=== PATIENT | male | born 1950 | race Two or more races ===

== ENCOUNTER 2024-12-06 12:31 | Inpatient (IN) | payer MEDICARE, MEDICAID, SELFPAY ==
[2024-12-06] VITALS (7 sets, daily range): BP systolic 122–173; BP diastolic 77–91; PULSE 58–74; RESP 16–19; TEMP 36.6–36.8; O2SAT 97–99
--- NOTE | 2024-12-06 13:06 | EKG_ITS ---
[facility] Test Date: 2024-12-06 Pat Name: BALDO GLEASON Department: Room: - Gender: Male Technology Recruiter: : 1950 Requested By: Sharan Cazares Order Number: [id number] Reading MD: Sharan Cazares Measurements Intervals [place] Rate: 55 P: 59 WV: 160 QRS: 25 QRSD: 98 T: 53 QT: 428 QTc: 412 Interpretive Statements SINUS BRADYCARDIA No previous ECG available for comparison /store/S0/[id number].pdf
--- NOTE | 2024-12-06 13:06 | XR_ITS ---
Examination: PA lateral chest 2 views TECHNIQUE: Upright PA lateral chest 2 views Date and time: November 28, 2024 1420 hours INDICATIONS: Weakness fatigue beginning 3 days ago FINDINGS: Normal heart size. Lungs are clear. Ectatic thoracic aorta. No pneumonia or pulmonary edema IMPRESSION: No active disease
--- NOTE | 2024-12-06 13:06 | PD.EDRME ---
Rapid Medical Screening Exam E Arrival date/time: 12/06/24 12:31 74-year-old male with no known medical history presents to the emergency room with a chief complaint of chest pain, palpitations, weakness, x 2 days. Patient states has been working out in the sun building a tafoya for the last week. I have greeted and performed a focused initial assessment of this patient. A comprehensive ED assessment and evaluation of the patient, analysis of all test results, and completion of the medical decision making process will be conducted by additional ED providers. Chief Complaint: Weakness Time Seen by Provider: 12/06/24 12:55 Vital signs: Vital Signs Temperature 97.9 F 12/06/24 13:05 Pulse Rate 58 L 12/06/24 13:05 Respiratory Rate 18 12/06/24 13:05 Blood Pressure 122/77 12/06/24 13:05 Pulse Oximetry (%) 98 12/06/24 13:05 Oxygen Delivery Method Room Air 12/06/24 13:05 Vital signs reviewed by provider: Yes
[2024-12-06 13:52] LABS: Basophils % (Auto) 0 % (0-2.5); Eosinophils % (Auto) 0 % (0-10); Hematocrit 38.8 % (41.0-53.0); Hemoglobin 13.2 g/dL (13.5-16.0); Immature Granulocytes % (Auto) 0 % (0-0); Immature Granulocytes Auto 0.02 Thou/mm3 (0.00-0.00); Lymphocytes # (Auto) 1.4 Thou/mm3 (1.0-4.8); Lymphocytes % (Auto) 18 % (10-50); Mean Corpuscular Hemoglobin 30.1 pg (25.0-35.0); Mean Corpuscular Volume 89 fL (80-100); Monocytes # (Auto) 0.4 Thou/mm3 (0.0-0.8); Monocytes % (Auto) 5 % (0-12); Neutrophils # (Auto) 5.9 Thou/mm3 (1.8-7.7); Neutrophils % (Auto) 77 % (37-80); Nucleated Red Blood Cell % 0 /100 WBC (0); Platelet Count 203 Thou/mm3 (140-440); RDW Standard Deviation 44.8 fL (35.1-43.9); Red Blood Count 4.38 Miln/mm3 (4.50-5.90); White Blood Count 7.6 Thou/mm3 (3.8-10.6)
[2024-12-06 14:11] LABS: INR 1.1 (0.9-1.3); Partial Thromboplastin Time 27.3 Seconds (22.0-36.0); Prothrombin Time 11.9 Seconds (9.0-12.2)
[2024-12-06 14:16] LABS: B-Type Natriuretic Peptide 96 pg/mL (0-100)
[2024-12-06 14:25] LABS: Alanine Aminotransferase 31 U/L (10-49); Albumin, Serum 4.5 gm/dL (3.4-4.8); Albumin/Globulin Ratio 2.4 (1.2-2.2); Anion Gap 10 (7-16); Aspartate Amino Transferase 67 U/L (0-34); BUN/Creatinine Ratio 19 Ratio (12-20); Bilirubin,Total 1.1 mg/dL (0.3-1.2); Blood Urea Nitrogen 17 mg/dL (9-23); Calcium 8.8 mg/dL (8.3-10.6); Calcium (Corrected) 8.8 mg/dL (8.5-10.1); Carbon Dioxide 25.8 mMol/L (20.0-31.0); Chloride 105 mMol/L (98-107); Creatine Kinase 1049 U/L (34-171); Creatinine (Component) 0.9 mg/dL (0.6-1.3); Globulin 1.9 gm/dL (2.3-3.5); Glucose 106 mg/dL (74-106); Magnesium 2.1 mg/dL (1.6-2.6); Osmolality,Calculated 282 (275-295); Potassium 4.5 mMol/L (3.4-5.1); Sodium 141 mMol/L (136-145); Total Protein 6.4 gm/dL (5.7-8.2); eGFR > 60 See Note
[2024-12-06 14:36] LABS: Alkaline Phosphatase 85 U/L (46-116)
[2024-12-06 14:53] LABS: Troponin I 5.104 ng/mL (0.0-0.045)
[2024-12-06 15:29] LABS: Collection Type, Urine Clean Catch
--- NOTE | 2024-12-06 15:32 | EDNOTE_ITS ---
ED General RME/HPI General Chief complaint: Weakness Stated complaint: WEAKNESS W/ SHARP CX PAIN POST WORKING IN SUN Time Seen by Provider: 12/06/24 12:55 Arrival date/time: 12/06/24 12:31 RME / HPI RME / HPI narrative: 12/06/24 12:31 74-year-old male with no known medical history presents to the emergency room with a chief complaint of chest pain, palpitations, weakness, x 2 days. Patient states has been working out in the sun building a tafoya for the last week. I have greeted and performed a focused initial assessment of this patient. A comprehensive ED assessment and evaluation of the patient, analysis of all test results, and completion of the medical decision making process will be conducted by additional ED providers. DR. SALAS MAIN ED EVALUATION: 74 year old male with past medical history significant for hypertension takes Losartan presents to the Emergency Department accompanied by his with complaint of chest pain onset 2 days worsening this morning. Pain is described as aching and rated 7/10. Patient states he has been pushing himself and working very hard lately in the heat. He also mentions that he has been going thorough a lot of emotional stress. Associated symptoms include generalized weakness. Denies taking any aspirin. Related Data Allergies Allergy/AdvReac Type Severity Reaction Status Date / Time No Known Allergies Allergy Verified 12/06/24 12:40 Review of Systems Review of Systems Systems Reviewed: All systems reviewed, normal except as documented Narrative Review of Systems: GEN: No fever, no chills, no weight loss EYES: No discharge, no visual changes, no pain HEENT: No ear pain, no congestion, no sore throat PULM: No shortness of breath, no cough, no congestion CV: + chest pain, no dyspnea on exertion, no palpitations GI: No nausea, no vomiting, no diarrhea, no pain, no constipation : No frequency, no urgency and no dysuria MUSC/SKEL: No joint pain, no back pain SKIN: No rash PSYCH: No hallucinations, no depression HEME/LYMPH: No easy bleeding or bruising tendencies NEURO: + generalized weakness, no headache Past Medical History Past Medical History CARDIAC: Positive Hypertension Social History SMOKING STATUS: Never smoker SUBSTANCE USE: does not use ALCOHOL: Never ED Exam Narrative Physical exam: GENERAL APPEARANCE: alert and oriented x 4, well-developed, well-nourished VITALS: All vitals were reviewed and the pulse ox is 98% on room air, which is normal according to my interpretation. HEENT: Normocephalic, atraumatic; pupils equal, round, reactive to light; EOMI; mucous membranes pink, moist; oropharynx clear NECK: Supple LUNGS: CTABL; no wheezes, no rales, no rhonchi HEART: Regular rate, regular rhythm; normal S1, S2; no murmurs ABDOMEN: non distended; normal BS; soft, no tenderness, no guarding, no rebound; no masses, no organomegaly, no hernia BACK: no CVA tenderness EXTREMITIES: atraumatic; there is mild pedal edema bilaterally, including ankles NEUROLOGIC: awake; alert and oriented x4; cranial nerves II-XII grossly intact; no focal sensory or motor deficits PSYCHIATRIC: appropriate mood and affect SKIN: warm, dry, normal color; no rashes Course Quality Measures none Orders Category Date Time Status Admit to Inpatient Status Routine Admission 12/06/24 16:33 Active Patient Condition Routine Admission 12/06/24 16:33 Ordered Activity as Tolerated Routine Care 12/06/24 16:33 Ordered Continuous Pulse Oximetry NOW Care 12/06/24 16:33 Completed EKG (ED ONLY) *Do not use* NOW Care 12/06/24 13:06 Completed Flu & Pneumonia Vaccine Screen ONCE Care 12/06/24 16:33 Active Notify provider NEEDED Care 12/06/24 16:33 Active Obtain weight daily Care 12/06/24 16:33 Active Consult to Cardiology Stat Cons 12/06/24 16:15 Ordered Diet Cardiac Diet 12/07/24 Breakfast Active CA echo doppler complete Routine Exams 12/06/24 16:34 Ordered EKG (ED Only) Stat Exams 12/06/24 13:06 Draft US liver Routine Exams 12/06/24 16:50 Ordered XR chest 2V Stat Exams 12/06/24 13:06 Completed A1C [Glycohemoglobin w (eAG)] AM DRAW Lab 12/07/24 05:00 Ordered B-Type Natriuretic Peptide Stat Lab 12/06/24 13:31 Completed CBC AM DRAW Lab 12/07/24 05:00 Ordered CBC AM DRAW Lab 12/08/24 05:00 Ordered CBC AM DRAW Lab 12/09/24 05:00 Ordered CBC AM DRAW Lab 12/10/24 05:00 Ordered CBC AM DRAW Lab 12/11/24 05:00 Ordered CBC AM DRAW Lab 12/12/24 05:00 Ordered CBC AM DRAW Lab 12/13/24 05:00 Ordered CBC AM DRAW Lab 12/14/24 05:00 Ordered CBC AM DRAW Lab 12/15/24 05:00 Ordered CBC AM DRAW Lab 12/16/24 05:00 Ordered CBC Stat Lab 12/06/24 13:31 Completed CK [Creatine Kinase] Stat Lab 12/06/24 13:31 Completed Comprehensive Metabolic Panel AM DRAW Lab 12/07/24 05:00 Ordered Comprehensive Metabolic Panel AM DRAW Lab 12/08/24 05:00 Ordered Comprehensive Metabolic Panel AM DRAW Lab 12/09/24 05:00 Ordered Comprehensive Metabolic Panel AM DRAW Lab 12/10/24 05:00 Ordered Comprehensive Metabolic Panel AM DRAW Lab 12/11/24 05:00 Ordered Comprehensive Metabolic Panel AM DRAW Lab 12/12/24 05:00 Ordered Comprehensive Metabolic Panel AM DRAW Lab 12/13/24 05:00 Ordered Comprehensive Metabolic Panel AM DRAW Lab 12/14/24 05:00 Ordered Comprehensive Metabolic Panel AM DRAW Lab 12/15/24 05:00 Ordered Comprehensive Metabolic Panel AM DRAW Lab 12/16/24 05:00 Ordered Comprehensive Metabolic Panel Stat Lab 12/06/24 13:31 Completed Ferritin AM DRAW Lab 12/07/24 05:00 Ordered Iron Panel AM DRAW Lab 12/07/24 05:00 Ordered Lipid Panel AM DRAW Lab 12/07/24 05:00 Ordered Magnesium AM DRAW Lab 12/07/24 05:00 Ordered Magnesium Stat Lab 12/06/24 13:31 Completed PTT [Partial Thromboplastin Time] Stat Lab 12/06/24 22:22 Ordered Partial Thromboplastin Time Stat Lab 12/06/24 13:31 Completed Phosphorous AM DRAW Lab 12/07/24 05:00 Ordered Prothrombin Time with INR AM DRAW Lab 12/07/24 05:00 Ordered Prothrombin Time with INR Stat Lab 12/06/24 13:31 Completed Reticulocyte Count AM DRAW Lab 12/07/24 05:00 Ordered Troponin I Stat Lab 12/06/24 13:31 Completed Troponin I Stat Lab 12/06/24 16:31 Received Urinalysis Stat Lab 12/06/24 15:05 Completed Acetaminophen Tab [Tylenol Tab] Med 12/06/24 16:33 Active 650 mg PO Q6H PRN Aspirin Chew Med 12/06/24 15:50 Discontinued 324 mg PO X1 ONE Aspirin [Ecotrin] Med 12/07/24 09:00 Active 81 mg PO QDAY Atorvastatin Calcium [Lipitor] Med 12/06/24 21:00 Active 40 mg PO HS Heparin Inj Med 12/06/24 15:50 Discontinued 4,000 unit IV X1 ONE Heparin/D5w 25K 250 ML Ivpb [Heparin in D5w Ivpb] Med 12/06/24 16:00 Active 25,000 unit in 250 ml IV 12 units/kg/hr Nitroglycerin Oint 2% [Nitro-paste Oint 2%] Med 12/06/24 15:50 Discontinued 1 inch TOP X1 ONE Ondansetron Inj [Zofran Inj] Med 12/06/24 16:33 Active 4 mg IVP Q6H PRN Senna [Senokot] Med 12/06/24 16:33 Active 1 tab PO QDAY PRN Sodium Chloride 0.9% 1000 ml [Ns] 1,000 ml Med 12/06/24 16:07 Active IV 999 mls/hr Code Status Routine Oth 12/06/24 16:33 Ordered Vital Signs Vital signs: Vital Signs Temperature 97.9 F 12/06/24 13:05 Pulse Rate 58 L 12/06/24 13:05 Respiratory Rate 18 12/06/24 13:05 Blood Pressure 122/77 12/06/24 13:05 Pulse Oximetry (%) 98 12/06/24 13:05 Oxygen Delivery Method Room Air 12/06/24 13:05 Discharge Plan Plan Patient Disposition: Admit Acute Care w/in Hospital Prescriptions/Referrals Referrals: Chela Kearns MD [Primary Care Provider] - In 1 week Problem List Clinical Impression: NSTEMI (non-ST elevation myocardial infarction), Chest pain, Elevated troponin Patient/Caregiver Discharge Instructions Print Language: Indonesian Stand Alone Forms: Maria Luz Award Info., Patient Portal Info Letter MDM Narrative MDM hospital course: Jess Maurice am scribing for and in the presence of Dr. Salas. Clinical Information Provided by patient and spouse () Medical Records Reviewed None (no previous visits) Meds/Rx Considered, not Ordered None Labs/Rad/Tests considered, not Ordered None Chronic Illness/Social Conditions Add or document further as needed: Hypertension takes Losartan. EKG Interpretation EKG #1: Date/time of EK12/06/24 1306 hours EKG interpretation: sinus bradycardia, rate 55, T wave inversion in V1, ST flattening in V2 Lab Interpretation Labs: interpreted by dc Lab(s) interpretation(s): Elevated troponin; troponin 5.104 Imaging Radiology reports / interpretation(s): Procedure(s): XR chest 2V Accession Number(s): [id number] cc: Sharan Lisa; Cisco Vincent MD~ Examination: PA lateral chest 2 views TECHNIQUE: Upright PA lateral chest 2 views Date and time: November 28, 2024 1420 hours INDICATIONS: Weakness fatigue beginning 3 days ago FINDINGS: Normal heart size. Lungs are clear. Ectatic thoracic aorta. No pneumonia or pulmonary edema IMPRESSION: No active disease Dictated By: Cisco Vincent MD Medication Administration(s) Medication Administration History Acetaminophen (Acetaminophen 325 Mg Tablet) 650 mg PO Q6H PRN PRN Reason: Pain 1-3 and/or Fever >100.1 Stop: 01/05/25 16:32 Aspirin (Aspirin Ec 81 Mg Tabec) 81 mg PO QDAY ROJELIO Stop: 01/06/25 08:59 Atorvastatin Calcium (Atorvastatin Calcium 20 Mg Tablet) 40 mg PO HS ROJELIO Stop: 01/05/25 20:59 Heparin Sodium/Dextrose (Heparin In D5w Ivpb) 25,000 unit in 250 mls @ 9.362 mls/hr IV .Q24H ROJELIO; Protocol Stop: 12/20/24 15:59 Last Admin: 12/06/24 16:16 Dose: 12 units/kg/hr, 9.362 mls/hr Documented By: NATHEN Co-signed By: VG Sodium Chloride (Ns) 1,000 mls @ 999 mls/hr IV .Q1H1M ONE Stop: 12/06/24 17:07 Last Admin: 12/06/24 16:35 Dose: 999 mls/hr Documented By: DB Ondansetron HCl (Ondansetron Inj 2 Mg/Ml Inj 2 Ml) 4 mg IVP Q6H PRN; Protocol PRN Reason: NAUSEA OR VOMITING Stop: 01/05/25 16:32 Sennosides (Senna Tablet) 1 tab PO QDAY PRN; Protocol PRN Reason: constipation Stop: 01/05/25 16:32 Discontinued Medications Aspirin (Aspirin 81 Mg Chew) 324 mg PO X1 ONE Stop: 12/06/24 15:51 Last Admin: 12/06/24 16:02 Dose: 324 mg Documented By: NATHEN Heparin Sodium (Porcine) (Heparin Sod Inj 5000 Unit/Ml Vial) 4,000 unit IV X1 ONE; Protocol Stop: 12/06/24 15:51 Last Admin: 12/06/24 16:07 Dose: 4,000 unit Documented By: NATHEN Co-signed By: VG Nitroglycerin (Nitroglycerin Oint 2% 1 Inch Packet) 1 inch TOP X1 ONE Stop: 12/06/24 15:51 Last Admin: 12/06/24 16:04 Dose: 1 inch Documented By: NATHEN Consultations/Discussions re: Management Consult #1: Date/time: 12/06/24 4:15 pm Physician, specialty, service, details: Discussed test HPI, PMHx, lab, radiology results and/or management with Dr. Rogel. Will consult an admission to the hospitalist. Consult #2: Date/time: 12/06/24 4:16 pm Physician, specialty, service, details: Discussed test HPI, PMHx, lab, radiology results and/or management with resident working with the hospitalist. Will admit for further evaluation and management. Accepts patient for admission. Diagnosis Differential diagnosis: SD, CAD, angina Most likely dx, and/or detailed dx discussion: NSTEMI Chest pain Elevated troponin Dispositon Disposition: Admit
[2024-12-06] MEDS: ASPIRIN 81 MG CHEW 324 MG PO (16:02)
[2024-12-06 16:04] LABS: Bilirubin,Urine Negative (Negative); Blood,Urine Trace (Negative); Clarity,Urine Clear (Clear/Hazy); Color,Urine Yellow (Lt Yel-Yel); Glucose, Urine Negative (Negative); Ketones,Urine 2+ (Negative); Leukocyte Esterase,Urine Negative (Negative); Nitrite,Urine Negative (Negative); PH,Urine 5.5 (5.0-7.0); Protein,Urine 1+ (Neg - Trace); RBC,Urine 3 /hpf (0-3); Specific Gravity,Urine 1.031 (1.001-1.035); Squamous Epithelial Cell,Urine < 1 /hpf (0-5); Urobilinogen,Urine Negative mg/dL (0.0-1.0); WBC,Urine 2 /hpf (0-5)
[2024-12-06] MEDS: NITROGLYCERIN OINT 2% 1 INCH PACKET TOP (16:04)
[2024-12-06] MEDS: HEPARIN SOD INJ 5000 UNIT/ML VIAL 4000 UNIT IV (16:07)
[2024-12-06] MEDS: Heparin/D5w 25K 250 ML Ivpb 25,000 UNIT/250 ML BAG 9.362 UNIT IV (16:16)
--- NOTE | 2024-12-06 16:34 | ECHO_ITS ---
Transthoracic Echo Report Ht (in): 69 Wt (lb): 172 Exam Location: Echo Lab Status: Inpatient Stripper Cutter Machine: Hannah Forte Indications: Procedure Performed: BP: 135 / 75 HR: 75 Technical Quality: Technically difficult study MEASUREMENTS (Male / Female) Normal Values 2D ECHO LV Diastolic Diameter PLAX 5.4 cm 4.2 - 5.9 / 3.9 - 5.3 cm LV Systolic Diameter PLAX 4.1 cm IVS Diastolic Thickness 0.8 cm 0.6 - 1.0 / 0.6 - 0.9 cm LVPW Diastolic Thickness 0.9 cm 0.6 - 1.0 / 0.6 - 0.9 cm LV Relative Wall Thickness 0.3 LVOT Diameter 2.2 cm LA Systolic Diameter LX 3.7 cm 3.0 - 4.0 / 2.7 - 3.8 cm LV Ejection Fraction MOD BP 48.6 % >= 55 % LV Cardiac Index MOD BP 2140.3 cm?/min?m? LV Ejection Fraction MOD 4C 51.2 % LV Cardiac Index MOD 4C 2213.1 cm?/min?m? LV Ejection Fraction 4C AL 51.9 % LV Cardiac Index 4C AL 2313.6 cm?/min?m? LV Ejection Fraction MOD 2C 50.5 % LV Cardiac Index MOD 2C 2205.4 cm?/min?m? LV Ejection Fraction 2C AL 50.9 % LV Cardiac Index 2C AL 2319.8 cm?/min?m? LA Volume Index 35.3 cm?/m? 16 - 28 cm?/m? M-MODE Aortic Root Diameter MM 3.0 cm LA Systolic Diameter MM 3.2 cm LA Ao Ratio MM 1.1 AV Cusp Separation MM 0.7 cm DOPPLER AV Peak Velocity 155.0 cm/s AV Peak Gradient 9.6 mmHg AV Mean Gradient 5.0 mmHg AV Velocity Time Integral 33.1 cm AI Peak Velocity 171.0 cm/s AI Peak Gradient 11.7 mmHg AI Pressure Half Time 1053.0 ms LVOT Peak Velocity 109.0 cm/s LVOT Peak Gradient 4.8 mmHg LVOT Velocity Time Integral 21.1 cm LVOT Cardiac Index 3071.1 cm?/min?m? AV Area Cont Eq vti 2.4 cm? AV Area Cont Eq pk 2.7 cm? MV Area PHT 3.0 cm? MR Peak Velocity 330.0 cm/s MR Peak Gradient 43.6 mmHg Mitral E Point Velocity 73.7 cm/s Mitral A Point Velocity 102.0 cm/s Mitral E to A Ratio 0.7 LV E' Lateral Velocity 6.1 cm/s Mitral E to LV E' Lateral Ratio 12.1 LV E' Septal Velocity 5.0 cm/s Mitral E to LV E' Septal Ratio 14.7 TR Peak Velocity 233.0 cm/s TR Peak Gradient 21.7 mmHg PV Peak Velocity 109.0 cm/s PV Peak Gradient 4.8 mmHg FINDINGS Left Ventricle Normal left ventricular size, wall thickness, systolic function with no obvious regional wall motion abnormalities. There is grade I diastolic dysfunction of the left ventricle (impaired relaxation pattern). The ejection fraction is visually estimated at 55-60 %. Right Ventricle The right ventricle is normal in size and systolic function. Left Atrium The left atrium is normal by two-dimensional, color flow and Doppler imaging with no structural abnormalities, no thrombus formation present. Left atrial volume index 35.3 mL/m?. Right Atrium The right atrium is normal by two-dimensional imaging, color flow and Doppler imaging with no structural abnormalities, no thrombus formation present. Atrial Septum The interatrial septum appears normal with no evidence of a shunt. Aorta The aorta is normal by two-dimensional, color flow and Doppler interrogation. Mitral Valve Mild mitral annular calcification. Mild mitral regurgitation. Aortic Valve Mild aortic valve regurgitation. Tricuspid Valve The tricuspid valve is normal by two-dimensional, color flow and Doppler interrogation. There is no significant tricuspid valve regurgitation. Pulmonic Valve The pulmonic valve is not well visualized. There is no significant pulmonic valve regurgitation. Vessels The pulmonary artery appears normal. The inferior vena cava pulmonary and hepatic veins appear normal. Pericardium The pericardium is normal by two-dimensional imaging. There is no significant pericardial effusion. CONCLUSIONS Indication: NSTEMI Normal LV size and function with mild lateral hypokinesis. Estimated EF 55-60%. Grade I diastolic dysfunction. RV is normal in size and systolic function. Left atrial volume index 35.3 mL/m?. Mild mitral annular calcification. Mild mitral regurgitation. Mild aortic valve regurgitation. Emerita Peace (Electronically Signed) Final Date: 09 Dec 2024 11:25
[2024-12-06] MEDS: SODIUM CHLORIDE 0.9% 1000 ML 1,000 ML 999 ML IV (16:35)
--- NOTE | 2024-12-06 16:36 | ESHP_ITS ---
<Statement entered by Johnathan Barajas MD - 12/06/24 17:15> LPatient examined and case discussed with the team including attending physician. Note reviewed, I agree with the care plan as documented. Mr Dahl is a 74-year-old male admitted for NSTEMI, likely type I , troponin >5. Past medical history includes primary hypertension. Cardiology Dr Rogel is consulted, look forward to recommendations. DEMETRIA Score 4?%, EKG shows sinus bradycardia without any concerning ST changes and chest x-ray shows normal heart size and no active disease. Troponin of 5.1 --> 9.7 --> repeat ordered Plan: On heparin drip, received aspirin, atorvastatin initiated. Lipid panel, A1c ordered. On home losartan 50 mg, states that he took his morning dose Please refer to the note above for further details. - Johnathan Barajas MD, PGY 2 Disclaimer: The document may contain phonetic/typographic errors due to voice recognition software. These errors are purely due to imperfections in the software program and should not be misconstrued in any way to compromise the substance of the patient's medical care during this visit. Documentation for date of: 12/06/24 HPI History of Present Illness Chief complaint: Chest pain History of present illness: 74-year-old male with past medical history of hypertension on losartan presenting to the ED on 12/06 with episode of chest pain associated with fatigue and dyspnea on exertion. Patient states that chest discomfort has been present on and off for about a month; moreover, he states that he has been working on a project involving a plow which has apparently been pressed against his chest and arm which he attributes to possibly the cause of his chest discomfort. Patient states that on the morning of 12/06 he started developing full body fatigue and some dyspnea with exertion which prompted him to present to the emergency room. Patient also has remote history of peripheral edema and palpitations but denies any recent symptoms. He also denies having any orthopnea (only uses 1 pillow and can lay flat), paroxysmal nocturnal dyspnea or pain with change in posture. Patient follows up with Dr. Kearns outpatient and has never been seen by margarine churn operator in the past. Medical history: As stated above Surgical history: Denies having any procedures Allergies: NKDA, patient states that he would like to avoid contrast as he has family member who apparently from contrast? Medications: Losartan 50 mg daily, patient takes potassium and magnesium supplements Family history: Patient denies any family history of stroke, heart attack Social history: Patient originally from [facility], lives in [place] with his . Used to be in electromechanical specialist. Denies tobacco or illicit drug use. Occasional alcohol use 2 beers every other week or so ROS: All 12 systems assessed and the patient denies unless otherwise stated in HPI In the ED, patient presented initially normotensive but then hypertensive with blood pressure 170/79, heart rate mildly bradycardic 58, respiratory rate 18, afebrile satting 98 on room air. Pertinent lab findings included WBC 7.6, hemoglobin 13.2 with MCV of 89, BUN 17, creatinine 0.9, magnesium 2.1, AST 67, ALT 31, total creatinine kinase 1049, troponin 5.104, BNP 96. Urinalysis negative for any signs of infection. EKG shows sinus bradycardia without any concerning ST changes and chest x-ray shows normal heart size and no active disease. Patient will be admitted for NSTEMI type I versus type II and started on heparin drip along with cardiology consultation. Exam Vital Signs Temp Pulse Resp BP Pulse Ox O2 Del Method 97.9 F 69 19 170/79 H 99 Room Air 12/06/24 13:05 12/06/24 16:04 12/06/24 15:55 12/06/24 16:04 12/06/24 15:55 12/06/24 15:55 Narrative Exam Physical Exam: GENERAL: Awake, answering questions appropriately, appears stated age HEENT: NC/AT. Moist mucosa. PERRLA/EOMI. CARDIO: Heart RRR, no obvious murmurs, no JVD. PULM: No coughing or visible SOB. Lungs CTA B/L. GI: Abdomen soft, NT/ND, +BS. SKIN/MSK/EXT: No wounds/discoloration/rashes/edema/amputations. +Pedal pulses present B/L. NEURO: Oriented x3, Moves extremities x4, no focal neurologic deficits noted Results: Labs 12/07/24 05:41 12/07/24 05:41 Labs: Short CBC 12/06/24 Range/Units 13:31 WBC 7.6 (3.8-10.6) Thou/mm3 Hgb 13.2 L (13.5-16.0) g/dL Hct 38.8 L (41.0-53.0) % Plt Count 203 (140-440) Thou/mm3 BMP 12/06/24 13:31 Sodium 141 Potassium 4.5 Chloride 105 Carbon Dioxide 25.8 BUN 17 Creatinine 0.9 Glucose 106 Calcium 8.8 Cardiac Enzymes 12/06/24 Range/Units 13:31 Total Creatine Kinase 1049 H (34-171) U/L Troponin I 5.104 H* (0.0-0.045) ng/mL Liver Function 12/06/24 Range/Units 13:31 Total Bilirubin 1.1 (0.3-1.2) mg/dL AST 67 H (0-34) U/L ALT 31 (10-49) U/L Alkaline Phosphatase 85 (46-116) U/L Albumin 4.5 (3.4-4.8) gm/dL Urine 12/06/24 Range/Units 15:05 Urine Color Yellow (Lt Yel-Yel) Urine Clarity Clear (Clear/Hazy) Urine pH 5.5 (5.0-7.0) Ur Specific [place] 1.031 (1.001-1.035) Urine Protein 1+ A (Neg - Trace) Urine Glucose (UA) Negative (Negative) Quality Measures Quality Measures none Advance care planning discussed with:: patient Medications Home Medications and Allergies Allergies Allergy/AdvReac Type Severity Reaction Status Date / Time No Known Allergies Allergy Verified 12/07/24 08:20 Visit Medications Acetaminophen (Acetaminophen 325 Mg Tablet) 650 mg PO Q6H PRN PRN Reason: Pain 1-3 and/or Fever >100.1 Stop: 01/05/25 16:32 Heparin Sodium/Dextrose (Heparin In D5w Ivpb) 25,000 unit in 250 mls @ 9.362 mls/hr IV .Q24H ROJELIO; Protocol Stop: 12/20/24 15:59 Last Admin: 12/06/24 16:16 Dose: 12 units/kg/hr, 9.362 mls/hr Sodium Chloride (Ns) 1,000 mls @ 999 mls/hr IV .Q1H1M ONE Stop: 12/06/24 17:07 Last Admin: 12/06/24 16:35 Dose: 999 mls/hr Ondansetron HCl (Ondansetron Inj 2 Mg/Ml Inj 2 Ml) 4 mg IVP Q6H PRN; Protocol PRN Reason: NAUSEA OR VOMITING Stop: 01/05/25 16:32 Sennosides (Senna Tablet) 1 tab PO QDAY PRN; Protocol PRN Reason: constipation Stop: 01/05/25 16:32 Discontinued Medications Aspirin (Aspirin 81 Mg Chew) 324 mg PO X1 ONE Stop: 12/06/24 15:51 Last Admin: 12/06/24 16:02 Dose: 324 mg Heparin Sodium (Porcine) (Heparin Sod Inj 5000 Unit/Ml Vial) 4,000 unit IV X1 ONE; Protocol Stop: 12/06/24 15:51 Last Admin: 12/06/24 16:07 Dose: 4,000 unit Nitroglycerin (Nitroglycerin Oint 2% 1 Inch Packet) 1 inch TOP X1 ONE Stop: 12/06/24 15:51 Last Admin: 12/06/24 16:04 Dose: 1 inch Assessment & Plan Plan 74-year-old male with past medical history of hypertension on losartan presenting to the ED on 12/06 with episode of chest pain associated with fatigue and dyspnea on exertion will be admitted for NSTEMI type I versus type II and started on heparin drip along with cardiology consultation. #NSTEMI type I versus type II #Elevated creatinine kinase As per HPI above, patient is presenting with chest discomfort which has been on and off for about a month but worsened today with associated exertional dyspnea and whole body weakness Patient has hypertension but denies having any history of hyperlipidemia, smoking history and is not obese on presentation Denies having any cardiac history, does not follow margarine churn operator outpatient Patient does state that he has remote history of peripheral edema along with palpitations which subsided and then not been present for a long time 104?points DEMETRIA Score 4?% Probability of from admission to 6 months EKG shows sinus bradycardia without any concerning ST changes and chest x-ray shows normal heart size and no active disease. In the ED, patient's initial troponin of 5.104, total creatinine kinase of 1049 but BNP of 96 Patient given aspirin loading dose, heparin drip and nitroglycerin topical in the ED Cardiology consulted, appreciate recommendations Plan: Continue heparin drip Aspirin, atorvastatin initiated Limit the loading dose, prevention 90 mg p.o. twice daily We will hold off on beta-shashank as patient is bradycardic Trending troponin Trending EKGs Keep potassium greater than 4 and magnesium greater than 2 Lipid panel, A1c ordered follow-up in the morning #Hypertension Patient on home losartan 50 mg, states that he took his morning dose Currently hypertensive with systolic in the 170s Plan: Will resume an appropriate #Elevated liver enzymes During workup, patient has elevated AST of 67, ALT of 31 States that he does drink alcohol occasionally but denies daily alcohol use Plan: Liver ultrasound ordered, follow-up #Normocytic anemia Presenting with hemoglobin of 13.2 and MCV of 89 Differentials include: Iron deficiency anemia, anemia chronic disease, vitamin deficiency, less likely to be hemolytic anemia or myelosuppression Plan: Follow-up with morning labs Follow-up with iron panel, ferritin, reticulocyte count Hospital Management: Lines: PIV Diet: Cardiac Bowel: Senna as needed GI prophylaxis: Not needed DVT prophylaxis: On heparin drip Dispo: Cardiology consulted for potentially NSTEMI type I, heparin drip Code: Full Patient seen and examined with attending Dr. Dukes and senior resident Dr. Jenn Corado, PGY-1 Attending Provider Attestation/Addendum I, Nhung Dukes, , attest that I was physically present for the zarco portions of the service and evaluated the patient with the resident and I reviewed and discussed the case with the resident and agree with the resident's findings and plans of care as documented above Patient is a 74-year-old male with past medical history of hypertension who presented to the ED with chest pain. Patient states that he was sitting when all of a sudden he felt chest pressure below his sternum. Patient states that he has intermittent chest pain at times that may radiate to his left arm associated with exertion. Patient states that he with short of breath with chest pain, but denied any diaphoresis. In the ED, patient was found to have a troponin of 5.1. EKG shows sinus bradycardia but no ST or T wave changes. Cardiology was called from ED and will further assess patient. Will admit patient to telemetry for further workup and medical management of NSTEMI. Will start patient on heparin drip and aspirin. Will follow-up with cardiology recommendations.
--- NOTE | 2024-12-06 16:42 | ESCONSULT_ITS ---
<Statement entered by Ban Rogel MD - 12/06/24 20:00> I personally examined the patient evaluated the patient emergency department patient 74-year-old male who appears to be fairly healthy except hypertension hypercholesteremia came to the hospital with a patient with angina pectoris for last few weeks or chest pain or severe tightness in the chest both arm discomfort classic's symptoms EKG unremarkable nonspecific ST changes enzymes are significantly elevated quite concerning for obstructive CAD since enzymes continue to go up to 9.0 troponin most likely patient with NSTEMI ACS will aggressively manage aspirin Brilinta and also heparin statin therapy blood pressure management beta-shashank symptoms PAULIE ARB as tolerated. Will schedule patient require angiogram tomorrow keep the patient NPO. Evaluated patient with resident physician PGY 3 DR Saini agree with the treatment plan recommendation as documented HPI Data of Consult Primary Care Provider: Chela Kearns MD Consult Narrative History of present illness: 74-year-old gentleman with past medical history of hypertension on losartan came to the ED with chief complaint of chest pain. 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 He is having on and off chest pain but this morning he stated that he had a sharp pain 7 out of 10 in the morning, at that time he was diaphoretic and his even mentioned that he was looking pale. He took losartan at that time and came to the ED. In the ED he received aspirin and nitro that relieved his pain. EKG does not have any specific changes. Troponin in the ED was 5. Initial blood pressure BP?122/77, P?58, RR?18 labs WBC?7.6, hemoglobin?13.2, PT?11.9, INR?1.1 sodium?141, potassium?4.5 magnesium?2.1, AST?67, ALT?31, total creatinine kinase 1049. He denies any significant family history of heart problems. His primary care physician is Dr. Aquino , patient has never seen a desktop support engineer. Past medical history?as above Past surgical history?no known surgical history. Allergy?no known allergies Social history?occasional alcohol, denies smoking, denies illegal substance use. Cardiology consulted for NSTEMI . cc:: cc: Review of Systems Review of Systems Systems Reviewed: All systems reviewed, normal except as documented Narrative Review of Systems: GENERAL: Comfortable adult seen resting comfortably in hospital bed, no acute distress VITALS: All vitals were reviewed and the pulse ox is 98% on room air HEENT: Normocephalic, atraumatic. Pupils are equal and reactive. Oral mucosa is moist. NECK: Supple, nontender, no JVD CHEST: Symmetrical, atraumatic and with equal expansion ,Nontender on palpation CARDIOVASCULAR: Heart regular rhythm & rate. S1/S2. no murmur or gallop rub or extra beats. LUNGS: Clear to auscultation bilaterally with symmetrical chest rise. No laboring tachypnea or wheezing. No intercostal subcostal retraction. No rales and no rhonchi. ABDOMEN: Soft, flat, nontender to palpation, no guarding or rebound tenderness. Active and normal bowel sounds. EXTREMITIES:Moves all 4 extremities,No B/L LE edema. SKIN: Warm and dry, no jaundice or rashes noted. NEURO: Patient is AO x 3, Cranial nerves II through XII grossly intact. There is no focal neurologic deficits noted. PSYCHIATRIC: Patient is in normal mood, cooperative, no SI or HI or hallucinations. Exam Vital Signs Temp Pulse Resp BP Pulse Ox O2 Del Method 97.9 F 69 19 170/79 H 99 Room Air 12/06/24 13:05 12/06/24 16:04 12/06/24 15:55 12/06/24 16:04 12/06/24 15:55 12/06/24 15:55 Results Labs 12/06/24 13:31 12/06/24 13:31 Labs: Short CBC 12/06/24 Range/Units 13:31 WBC 7.6 (3.8-10.6) Thou/mm3 Hgb 13.2 L (13.5-16.0) g/dL Hct 38.8 L (41.0-53.0) % Plt Count 203 (140-440) Thou/mm3 BMP 12/06/24 13:31 Sodium 141 Potassium 4.5 Chloride 105 Carbon Dioxide 25.8 BUN 17 Creatinine 0.9 Glucose 106 Calcium 8.8 Cardiac Enzymes 12/06/24 Range/Units 13:31 Total Creatine Kinase 1049 H (34-171) U/L Troponin I 5.104 H* (0.0-0.045) ng/mL Liver Function 12/06/24 Range/Units 13:31 Total Bilirubin 1.1 (0.3-1.2) mg/dL AST 67 H (0-34) U/L ALT 31 (10-49) U/L Alkaline Phosphatase 85 (46-116) U/L Albumin 4.5 (3.4-4.8) gm/dL Urine 12/06/24 Range/Units 15:05 Urine Color Yellow (Lt Yel-Yel) Urine Clarity Clear (Clear/Hazy) Urine pH 5.5 (5.0-7.0) Ur Specific [place] 1.031 (1.001-1.035) Urine Protein 1+ A (Neg - Trace) Urine Glucose (UA) Negative (Negative) Quality Measures Quality Measures none Advance care planning discussed with:: patient Medications Home Medications and Allergies Allergies Allergy/AdvReac Type Severity Reaction Status Date / Time No Known Allergies Allergy Verified 12/06/24 12:40 Visit Medications Acetaminophen (Acetaminophen 325 Mg Tablet) 650 mg PO Q6H PRN PRN Reason: Pain 1-3 and/or Fever >100.1 Stop: 01/05/25 16:32 Aspirin (Aspirin Ec 81 Mg Tabec) 81 mg PO QDAY ROJELIO Stop: 01/06/25 08:59 Atorvastatin Calcium (Atorvastatin Calcium 20 Mg Tablet) 40 mg PO HS ROJELIO Stop: 01/05/25 20:59 Heparin Sodium/Dextrose (Heparin In D5w Ivpb) 25,000 unit in 250 mls @ 9.362 mls/hr IV .Q24H ROJELIO; Protocol Stop: 12/20/24 15:59 Last Admin: 12/06/24 16:16 Dose: 12 units/kg/hr, 9.362 mls/hr Sodium Chloride (Ns) 1,000 mls @ 999 mls/hr IV .Q1H1M ONE Stop: 12/06/24 17:07 Last Admin: 12/06/24 16:35 Dose: 999 mls/hr Ondansetron HCl (Ondansetron Inj 2 Mg/Ml Inj 2 Ml) 4 mg IVP Q6H PRN; Protocol PRN Reason: NAUSEA OR VOMITING Stop: 01/05/25 16:32 Sennosides (Senna Tablet) 1 tab PO QDAY PRN; Protocol PRN Reason: constipation Stop: 01/05/25 16:32 Discontinued Medications Aspirin (Aspirin 81 Mg Chew) 324 mg PO X1 ONE Stop: 12/06/24 15:51 Last Admin: 12/06/24 16:02 Dose: 324 mg Heparin Sodium (Porcine) (Heparin Sod Inj 5000 Unit/Ml Vial) 4,000 unit IV X1 ONE; Protocol Stop: 12/06/24 15:51 Last Admin: 12/06/24 16:07 Dose: 4,000 unit Nitroglycerin (Nitroglycerin Oint 2% 1 Inch Packet) 1 inch TOP X1 ONE Stop: 12/06/24 15:51 Last Admin: 12/06/24 16:04 Dose: 1 inch Assessment & Plan Plan 74-year-old gentleman with past medical history of hypertension on losartan came to the ED with chief complaint of chest pain. 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 He is having on and off chest pain but this morning he stated that he had a sharp pain 7 out of 10 in the morning, at that time he was diaphoretic and his even mentioned that he was looking pale. He took losartan at that time and came to the ED. In the ED he received aspirin and nitro that relieved his pain. EKG does not have any specific changes. Troponin in the ED was 5. Initial blood pressure BP?122/77, P?58, RR?18 labs WBC?7.6, hemoglobin?13.2, PT?11.9, INR?1.1 sodium?141, potassium?4.5 magnesium?2.1, AST?67, ALT?31, total creatinine kinase 1049. He denies any significant family history of heart problems. His primary care physician is Dr. Aquino , patient has never seen a desktop support engineer. #NSTEMI - Most likely Type I versus less likely type II in the setting of recent stress - He has sharp stabbing kind of chest pain which resolved after nitro and aspirin -troponin was 5.1 on admission went to 9 .63 -Patient got aspirin 325 in the ED and Nitropaste which relived his pain. -chest xray- no active disease. -Admit to telemetry -Started on Medication : aspirin 81 , statin 40 mg , losarten 100 q day -started on loading dose of Brillanta then brillanta 90 bid . -Antithrombotic therapy - heparin drip -He got Nitro paste -Will do early revascularization , cath tomorrow morning . -NPO after midnight. -Follow up on Echo -Follow up on Lipid profile, A1c . Rest of medical management as per Primary team Case discussed with Dr Juan F Cornelius MD, PGY- 3
--- NOTE | 2024-12-06 16:50 | XR_ITS ---
Examination: Abdomen sonogram, Limited Date and time of exam: December 06, 2024 at 1702 hours INDICATIONS: Elevated liver function tests on laboratory examination today Technique: Real-time cneteno scale transabdominal sonographic images of the upper abdomen obtained. Findings: Normal gallbladder Normal common bile by 0.5 cm Pancreas obscured by bowel gas Liver 15.2 cm fatty infiltration lobular contour No focal liver lesions Normal hepatopedal portal venous flow IMPRESSION: Normal gallbladder. Fatty liver, suspect primary hepatocellular disease
[2024-12-06 17:07] LABS: Troponin I 9.653 ng/mL (0.0-0.045)
--- NOTE | 2024-12-06 19:26 | PC.NURSE ---
pt arrived to room 261, at 1828, completed admission and assessment, report given to MANDO Pope to complete med rec.
[2024-12-06] MEDS: ATORVASTATIN CALCIUM 20 MG TABLET 80 MG PO (20:44)
[2024-12-06] MEDS: TICAGRELOR 90 MG TABLET 180 MG PO (21:23)
[2024-12-06 22:48] LABS: Partial Thromboplastin Time 37.3 Seconds (22.0-36.0); Troponin I 15.888 ng/mL (0.0-0.045)
[2024-12-06] MEDS: HEPARIN SOD INJ 5000 UNIT/ML VIAL 2000 UNIT IVP (23:40)
[2024-12-07] VITALS (18 sets, daily range): BP systolic 106–148; BP diastolic 48–91; PULSE 50–76; RESP 12–21; TEMP 36.1–37; O2SAT 96–99
--- NOTE | 2024-12-07 05:58 | EKG_ITS ---
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
[2024-12-07 06:14] LABS: Basophils % (Auto) 0 % (0-2.5); Eosinophils % (Auto) 0 % (0-10); Hematocrit 34.7 % (41.0-53.0); Immature Granulocytes % (Auto) 1 % (0-0); Immature Granulocytes Auto 0.05 Thou/mm3 (0.00-0.00); Immature Reticulocyte Fraction 6.3 % (2.3-13.4); Lymphocytes # (Auto) 1.4 Thou/mm3 (1.0-4.8); Lymphocytes % (Auto) 16 % (10-50); Mean Corpuscular HGB Conc 34.6 g/dl (31.0-37.0); Mean Corpuscular Hemoglobin 30.6 pg (25.0-35.0); Mean Corpuscular Volume 89 fL (80-100); Monocytes # (Auto) 0.6 Thou/mm3 (0.0-0.8); Monocytes % (Auto) 7 % (0-12); Neutrophils # (Auto) 6.7 Thou/mm3 (1.8-7.7); Neutrophils % (Auto) 77 % (37-80); Nucleated Red Blood Cell % 0 /100 WBC (0); Platelet Count 171 Thou/mm3 (140-440); Red Blood Count 3.92 Miln/mm3 (4.50-5.90); Reticulocyte Absolute Auto 40.4 Biln/L (25.0-75.0); Reticulocyte Hgb Content 35.5 pg (28.0-35.0); White Blood Count 8.7 Thou/mm3 (3.8-10.6)
[2024-12-07 06:34] LABS: INR 1.2 (0.9-1.3); Partial Thromboplastin Time 51.3 Seconds (22.0-36.0); Prothrombin Time 12.5 Seconds (9.0-12.2)
[2024-12-07 06:41] LABS: Alanine Aminotransferase 34 U/L (10-49); Albumin, Serum 3.3 gm/dL (3.4-4.8); Albumin/Globulin Ratio 2.1 (1.2-2.2); Alkaline Phosphatase 68 U/L (46-116); Anion Gap 10 (7-16); Aspartate Amino Transferase 159 U/L (0-34); BUN/Creatinine Ratio 30 Ratio (12-20); Bilirubin,Total 0.9 mg/dL (0.3-1.2); Blood Urea Nitrogen 24 mg/dL (9-23); Calcium 8.1 mg/dL (8.3-10.6); Calcium (Corrected) 8.7 mg/dL (8.5-10.1); Carbon Dioxide 25.4 mMol/L (20.0-31.0); Cardiac Risk Estimate 2.5 RATIO (4.0-6.7); Chloride 108 mMol/L (98-107); Cholesterol 134 mg/dL (132-200); Creatinine (Component) 0.8 mg/dL (0.6-1.3); Estimated Creatinine Clearance 5.7 mL/min (>60); Globulin 1.6 gm/dL (2.3-3.5); Glucose 102 mg/dL (74-106); HDL Cholesterol 54 mg/dL (40-60); LDL Cholesterol,Calculated 70 mg/dL (0-130); Osmolality,Calculated 288 (275-295); Phosphorous 2.6 mg/dL (2.4-5.1); Potassium 4.1 mMol/L (3.4-5.1); Sodium 143 mMol/L (136-145); Total Protein 4.9 gm/dL (5.7-8.2); Triglycerides 48 mg/dL (30-150); eGFR > 60 See Note
[2024-12-07 06:42] LABS: Ferritin 107 ng/mL (10.5-307.3); Iron 73 mcg/dL (65-175); Percent Iron Saturation 28 % (20-55); Total Iron Binding Capacity 255 mcg/dL (250-425); Unsaturated Iron Binding 182 (225-295)
[2024-12-07 06:49] LABS: Troponin I 31.796 ng/mL (0.0-0.045)
[2024-12-07 06:51] LABS: Glucose Estimated Average 117 mg/dL (80-131); Hemoglobin A1C 5.7 % Hgb (4.8-6.0)
--- NOTE | 2024-12-07 09:41 | ESOP_ITS ---
RE: BALDO GLEASON : 1950 DATE OF OPERATION: 12/07/2024 PROCEDURE PERFORMED: 1. Emergency diagnostic left heart cardiac catheterization, selective coronary angiogram, left ventricular angiogram, CPT 47618. 2. Emergency PCI, PTCA, stent placement in the mid left circumflex artery, placement of drug-eluted stent 3.0 x 18 mm [place] Medtronic drug-eluting stent, CPT code 40663. 3. Conscious sedation one hour duration. 4. Ultrasound guidance access of the right radial artery. DIAGNOSES: Acute myocardial infarction with troponin elevation. HISTORY AND INDICATIONS: The patient is a 74-year-old male with a past medical history of hypertension and hypercholesterolemia, otherwise in fair health, doing fairly well until a few days ago. He has been having recurrent chest tightness on exertion. He came to the hospital with severe exceptional chest pain, radiating in to both shoulders, lasted several hours with significant troponin elevation. EKG showed evidence of possible posterior wall myocardial infarction. The patient was recommended to have a emergency coronary angiogram, cardiac catheterization because of persistent troponin elevation and acute myocardial infarction and primary angioplasty stent placement. DESCRIPTION OF PROCEDURE: The patient was brought to cardiac catheterization laboratory where he was given conscious sedation 2 mg Versed and 50 mcg of fentanyl. Right radial approach was taken. Right radial artery was cannulated by micropuncture technique and ultrasound guidance was used and 6-Polish Glidesheath was introduced. Selective right and left coronary angiography, diagnostic procedure was performed by 5-Polish TIG 4 diagnostic catheter. Left heart catheterization and left ventricular angiography was performed by TIG-4 diagnostic catheter. Following the procedure, intervention was undertaken. Diagnostic procedure showed following findings. Hemodynamics: Left ventricular pressure is 105/5, EDP is 8, aortic pressure 105/68. No gradient across the aortic valve. Left ventricular angiogram showed evidence of mild posterolateral hypokinesis, ejection fraction of 55%. Coronary angiogram showed following findings: Right coronary artery is large and dominant, showed evidence of 80% long tubular stenosis of the mid right coronary artery and the distal right coronary artery showed approximately 40% stenosis. PDA and posterolateral branches are normal. Left coronary system; left main coronary artery is normal. Left anterior descending artery showed mild atherosclerotic plaque in the proximal, mid and distal segments. No significant stenosis. Diagonal branch showed mild stenosis in the proximal segment. Circumflex artery: Left circumflex artery is large and gives off an obtuse marginal branch and AV groove branch subsequently totally occluded in the mid segment. The left segment was totally occluded in the mid segment, is an infarct vessel, KENDAL flow 0. Following diagnostic procedure, intervention was undertaken. The patient was given IV radial cocktail with 3000 units of heparin, additional 2000 units heparin was given, ACT was 380. Aspirin and Brilinta loading dose was already given yesterday. Proceed with the PCI. A 6-Polish JL 3.5 guiding catheter was used to cannulate the left main coronary artery. Pre- dilation of the lesion was performed by 2.5 mm Medtronic angioplasty balloon. Subsequently, KENDAL 3 flow was established. A 3.0 x 18 mm [place] Medtronic stent was deployed successfully in the mid left circumflex artery, 12 atmospheric pressure were used. Final angiogram showed evidence of widely patent left circumflex artery with KENDAL 3 flow. TR band was applied. Hemostasis was secured. SUMMARY OF FINDINGS: 1. Double-vessel coronary artery disease, evidence of total occlusion of the mid left circumflex artery and 80% stenosis in the mid right coronary artery. 2. Successful PCI, PTCA, stent placement, primary angioplasty of the mid left circumflex artery with excellent results. Pre-procedure stenosis 100%, post procedure stenosis 0%. Pre-procedure KENDAL flow was 0. Post procedure KENDAL flow 3. COMPLICATIONS: None. ESTIMATED BLOOD LOSS: Negligible. RECOMMENDATIONS: The patient will continue on aspirin and Brilinta. If he has persistent angina pectoris, we will do PCI stent placement in the right coronary artery. If he is stable, he can have elective PCI stent placement in the right coronary artery after 6 weeks. DT: 08::53 TT: 09:40:00 Ref: [id number] - TID: [id number] MTDOlivia
--- NOTE | 2024-12-07 09:43 | PC.NURSE ---
0801: Pt received in [facility] via gurney. Report from Efren GILMORE. Pt awake, alert. Resp even, unlabored. VS stable. TR Band to right wrist intact with no bleeding, hematoma. Radial pulses strong, regular. Denies pain. 0840: Pt has been resting with no complaints voiced. Breakfast meal served. Pt consuming meal with no difficulty swallowing and no n/v. VS stable. TR Band intact with no bleeding, hematoma. 0910: Pt has finished breakfast meal. Consumed 75% of meal. 0946: Pt resting with no complaints voiced. VS stable. Report to Vida GILMORE.
--- NOTE | 2024-12-07 10:26 | PC.SS ---
STOCK SELECTOR attempted bedside contact with the patient to conduct initial assessment. Patient not present at labourers undergoing procedure.
--- NOTE | 2024-12-07 10:27 | PC.SS ---
PICKING MACHINE OPERATOR HELPER attempted phone contact with patient's spouse, Annita Dahl ; to obtain information for initial assessment on behalf of the patient. No response.
--- NOTE | 2024-12-07 11:53 | PC.NURSE ---
Report given to MANDO Roy. VSS. Patient A&O x4. Right wrist is soft, flat, and nontender. No signs of bleeding or hematoma. Coban and tegaderm on site. Dressing clean, dry, and intact. Patient transferred to [facility] via [facility].
--- NOTE | 2024-12-07 12:10 | PC.NURSE ---
called to pharmacy for late tray, per chicho solo is on its way.
--- NOTE | 2024-12-07 13:09 | ESPR_ITS ---
<Statement entered by Johnathan Barajas MD - 12/07/24 15:40> Patient examined and case discussed with the team including attending physician. Note reviewed, I agree with the care plan as documented. Mr Dahl is a 74-year-old male admitted for NSTEMI, likely type I , troponin >5. Past medical history includes primary hypertension. Cardiology Dr Rogel is consulted, look forward to recommendations. DEMETRIA Score 4?%, EKG shows sinus bradycardia without any concerning ST changes and chest x-ray shows normal heart size and no active disease. Lipid panel, A1c within normal limits. Troponin of 5.1 --> 9.7 --> 15 -> 31 --> cardiac cath on 12/07/2024 Findings: Double-vessel coronary artery disease, evidence of total occlusion of the mid left circumflex artery and 80% stenosis in the mid right coronary artery. s/p Successful PCI, PTCA, stent placement at mid left circumflex artery. Post procedure KENDAL flow 3. Plan: Per cardiology recommendations, continue on aspirin and Brilinta. If he has persistent angina, Dr Rogel to do PCI stent for right coronary artery. If stable, patient can have an elective PCI stent placement after 4 weeks. Will reduce losartan 100-> 50 mg for BP 100-110 systolic. Please refer to the note above for further details. - Johnathan Barajas MD, PGY 2 Disclaimer: The document may contain phonetic/typographic errors due to voice recognition software. These errors are purely due to imperfections in the software program and should not be misconstrued in any way to compromise the substance of the patient's medical care during this visit. Documentation for date of: 12/07/24 Subjective Subjective Interval history: 12/07/2024: Overnight patient's troponin progressively increased as mentioned below in assessment and plan. Patient had left heart catheterization with cardiology which showed 100% occlusion of the circumflex artery and 80% stenosis of the RCA. Patient had stent placement of the circumflex and will continue on DAPT (aspirin and Brilinta) and statin. Will monitor the patient over 24 hours for persistent anginal symptoms; if present we will repeat PCI for RCA. If the patient is asymptomatic, expect discharge within the next 24 hours with follow- up in 4 weeks for elective PCI. Exam Vital Signs Temp Pulse Resp BP Pulse Ox O2 Del Method 97.3 F 60 19 120/62 98 Room Air 05/29/25 12:00 12/07/24 12:00 12/07/24 12:00 12/07/24 12:00 12/07/24 12:00 12/07/24 12:00 Narrative Exam Physical Exam: GENERAL: Awake, answering questions appropriately, appears stated age HEENT: NC/AT. Moist mucosa. PERRLA/EOMI. CARDIO: Heart RRR, no obvious murmurs, no JVD. PULM: No coughing or visible SOB. Lungs CTA B/L. GI: Abdomen soft, NT/ND, +BS. SKIN/MSK/EXT: No wounds/discoloration/rashes/edema/amputations. +Pedal pulses present B/L. NEURO: Oriented x3, Moves extremities x4, no focal neurologic deficits noted Objective Labs 12/07/24 05:41 12/07/24 05:41 Labs: Laboratory Results - last 24 hr 12/06/24 12/06/24 12/06/24 13:31 15:05 16:31 WBC 7.6 RBC 4.38 L Hgb 13.2 L Hct 38.8 L MCV 89 MCH 30.1 MCHC 34.0 RDW Std Deviation 44.8 H Plt Count 203 Neut % (Auto) 77 Lymph % (Auto) 18 [place] % (Auto) 5 Eos % (Auto) 0 Baso % (Auto) 0 Neut # (Auto) 5.9 Lymph # (Auto) 1.4 [place] # (Auto) 0.4 Eos # (Auto) 0.0 Baso # (Auto) 0.0 Immature Gran # (Auto) 0.02 H Absolute Nucleated RBC 0.00 Immature Gran % 0 Nucleated RBC % 0 Retic Count (auto) Absolute Retic Immature Retic Fraction Retic Hgb Content CHr PT 11.9 INR 1.1 APTT 27.3 Activated Clotting Time Sodium 141 Potassium 4.5 Chloride 105 Carbon Dioxide 25.8 Anion Gap 10 BUN 17 Creatinine 0.9 Estim Creat Clear Calc Not Performed. eGFR > 60 BUN/Creatinine Ratio [address] Glu mg/dL Hemoglobin A1c Calculated Osmolality 282 Calcium 8.8 Corrected Calcium 8.8 Phosphorus Magnesium 2.1 Iron TIBC Iron Saturation Unsat Iron Binding Ferritin Total Bilirubin 1.1 AST 67 H ALT 31 Alkaline Phosphatase 85 Total Creatine Kinase 1049 H Troponin I 5.104 H* 9.653 H* D B-Natriuretic Peptide 96 Total Protein 6.4 Albumin 4.5 Globulin 1.9 L Albumin/Globulin Ratio 2.4 H Triglycerides Cholesterol LDL Cholesterol, Calc HDL Cholesterol Cholesterol/HDL Ratio Ur Collection Type Clean Catch Urine Color Yellow Urine Clarity Clear Urine pH 5.5 Ur Specific [place] 1.031 Urine Protein 1+ A Urine Glucose (UA) Negative Urine Ketones 2+ A Urine Blood Trace Urine Nitrite Negative Urine Bilirubin Negative Urine Urobilinogen (Auto) Negative Ur Leukocyte Esterase Negative Urine RBC 3 Urine WBC 2 Ur Squamous Epith Cells < 1 Urine Bacteria None 12/06/24 12/07/24 12/07/24 21:55 05:41 08:07 WBC 8.7 RBC 3.92 L Hgb 12.0 L Hct 34.7 L MCV 89 MCH 30.6 MCHC 34.6 RDW Std Deviation 45.0 H Plt Count 171 D Neut % (Auto) 77 Lymph % (Auto) 16 [place] % (Auto) 7 Eos % (Auto) 0 Baso % (Auto) 0 Neut # (Auto) 6.7 Lymph # (Auto) 1.4 [place] # (Auto) 0.6 Eos # (Auto) 0.0 Baso # (Auto) 0.0 Immature Gran # (Auto) 0.05 H Absolute Nucleated RBC 0.00 Immature Gran % 1 H Nucleated RBC % 0 Retic Count (auto) 1.0 Absolute Retic 40.4 Immature Retic Fraction 6.3 Retic Hgb Content CHr 35.5 H PT 12.5 H INR 1.2 APTT 37.3 H D 51.3 H D Activated Clotting Time 384.0 H Sodium 143 Potassium 4.1 Chloride 108 H Carbon Dioxide 25.4 Anion Gap 10 BUN 24 H Creatinine 0.8 Estim Creat Clear Calc 5.7 L eGFR > 60 BUN/Creatinine Ratio 30 H Glucose [address] Glu mg/dL 117 Hemoglobin A1c 5.7 Calculated Osmolality 288 Calcium 8.1 L Corrected Calcium 8.7 Phosphorus 2.6 Magnesium 2.0 Iron 73 TIBC 255 Iron Saturation 28 Unsat Iron Binding 182 L Ferritin 107 Total Bilirubin 0.9 AST 159 H ALT 34 Alkaline Phosphatase 68 Total Creatine Kinase Troponin I 15.888 H* D 31.796 H* D B-Natriuretic Peptide Total Protein 4.9 L Albumin 3.3 L D Globulin 1.6 L Albumin/Globulin Ratio 2.1 Triglycerides 48 Cholesterol 134 LDL Cholesterol, Calc 70 HDL Cholesterol 54 Cholesterol/HDL Ratio 2.5 L Ur Collection Type Urine Color Urine Clarity Urine pH Ur Specific [place] Urine Protein Urine Glucose (UA) Urine Ketones Urine Blood Urine Nitrite Urine Bilirubin Urine Urobilinogen (Auto) Ur Leukocyte Esterase Urine RBC Urine WBC Ur Squamous Epith Cells Urine Bacteria Quality Measures Quality Measures none Advance care planning discussed with:: patient Assessment & Plan Assessment Current Active Medications: Generic Name Dose Route Start Last Admin Trade Name Freq PRN Reason Stop Dose Admin Acetaminophen 650 mg 12/06/24 16:33 Acetaminophen 325 Mg Tablet PO 01/05/25 16:32 Q6H PRN Pain 1-3 and/or Fever >100.1 Aspirin 81 mg 12/07/24 09:00 12/07/24 08:32 Aspirin Ec 81 Mg Tabec PO 01/06/25 08:59 Not Given QDAY ROJELIO Atorvastatin Calcium 80 mg 12/06/24 21:00 12/06/24 20:44 Atorvastatin Calcium 20 Mg Tablet PO 01/05/25 20:59 80 mg HS ROJELIO Administration Losartan Potassium 100 mg 12/07/24 09:00 12/07/24 12:09 Losartan Potassium 25 Mg Tablet PO 01/06/25 08:59 Not Given QDAY ROJELIO Ondansetron HCl 4 mg 12/06/24 16:33 Ondansetron Inj 2 Mg/Ml Inj 2 Ml IVP 01/05/25 16:32 Q6H PRN NAUSEA OR VOMITING Protocol Sennosides 1 tab 12/06/24 16:33 Senna Tablet PO 01/05/25 16:32 QDAY PRN constipation Protocol Ticagrelor 90 mg 12/07/24 09:00 12/07/24 08:33 Ticagrelor 90 Mg Tablet PO 01/06/25 08:59 Not Given BID ROJELIO Plan 74-year-old male with past medical history of hypertension on losartan presenting to the ED on 12/06 with episode of chest pain associated with fatigue and dyspnea on exertion will be admitted for NSTEMI type I versus type II and started on heparin drip along with cardiology consultation. #Acute coronary syndrome #NSTEMI type I As per HPI above, patient is presenting with chest discomfort which has been on and off for about a month but worsened today with associated exertional dyspnea and whole body weakness Patient has hypertension but denies having any history of hyperlipidemia, smoking history and is not obese on presentation Denies having any cardiac history, does not follow repairer wood furniture outpatient Patient does state that he has remote history of peripheral edema along with palpitations which subsided and then not been present for a long time 104?points DEMETRIA Score 4?% Probability of from admission to 6 months EKG shows sinus bradycardia without any concerning ST changes and chest x-ray shows normal heart size and no active disease. In the ED, patient's initial troponin of 5.104 --> 9.6 --> 15.8 --> 31.8 Total creatinine kinase of 1049 but BNP of 96 Patient given aspirin loading dose, heparin drip and nitroglycerin topical in the ED Cardiology consulted, appreciate recommendations Completed Double-vessel coronary artery disease, evidence of total occlusion of the mid left circumflex artery and 80% stenosis in the mid right coronary artery. Operative Report: successful PCI, PTCA, stent placement, primary angioplasty of the mid left circumflex artery with excellent results. Pre-procedure stenosis 100%, post procedure stenosis 0%. Plan: If patient has persistent angina, left heart catheterization will be completed again for RCA 80% stenosis If the patient is asymptomatic, discharge and follow-up in 4 weeks for elective PCI Aspirin, atorvastatin initiated Brillinta 90 mg p.o. twice daily We will hold off on beta-shashank as patient is bradycardic Keep potassium greater than 4 and magnesium greater than 2 Lipid panel, A1c ordered follow-up in the morning #Hypertension Patient on home losartan 50 mg, states that he took his morning dose Currently hypertensive with systolic in the 170s Plan: Resume patient's home dose #MASLD During workup, patient has elevated AST of 67, ALT of 31 States that he does drink alcohol occasionally but denies daily alcohol use Liver U/S shows Normal gallbladder. Fatty liver, suspect primary hepatocellular disease Plan: Diet and exercise counseling Follow-up with PCP for close monitoring #Normocytic anemia Presenting with hemoglobin of 13.2 and MCV of 89 Differentials include: Iron deficiency anemia, anemia chronic disease, vitamin deficiency, less likely to be hemolytic anemia or myelosuppression Reticulocyte count within normal limits Iron panel shows iron of 73, TIBC 255, iron saturation 28%, ferritin 107 Plan: Follow-up with morning labs Follow-up with PCP outpatient Hospital Management: Lines: PIV Diet: Cardiac Bowel: Senna as needed GI prophylaxis: Not needed DVT prophylaxis: On DAPT Dispo: Status post PCI for circumflex occlusion with stent placement, monitoring for angina symptoms Code: Full Patient seen and examined with attending Dr. Dukes and senior resident Dr. Jenn Corado, PGY-1 Attending Provider Attestation/Addendum Nhung Maurice, , attest that I was physically present for the zarco portions of the service and evaluated the patient with the resident and I reviewed and discussed the case with the resident and agree with the resident's findings and plans of care as documented above Patient seen and evaluated after cardiac cath this morning. Patient states he is feeling much better and denies any shortness of breath or chest pain. Patient had PCI and stent placement in the mid left circumflex artery. He will need another stent placement in the right coronary artery that is to be done in about 6 weeks. Patient was counseled on need for medication compliance with aspirin and Brilinta to prevent in-stent restenosis. Ejection fraction of 55% with mild posterior lateral hypokinesis noted during angiogram. Blood pressure has been within normal limits. Will decrease home losartan dose to 50 mg p.o. daily. If patient remains stable, anticipate discharge within the next 24 hours.
--- NOTE | 2024-12-07 14:17 | PC.SS ---
Rounding Note: Patient underwent left heart cath. Procedure conducted by Dr. Rogel.
--- NOTE | 2024-12-07 15:58 | PC.SS ---
HUMAN RESOURCES TEMP conducted bedside contact with the patient conduct initial assessment and to discuss discharge planning.? Patient confirmed demographic information.? Patient resides at home with spouse, Annita Dahl, .? Patient is retired.? Patient does not utilize any form of DME to assist with ambulation.? Patient does not utilize home oxygen.? Patient describes the ability to complete ADL?s independently.? Patient identified spouse, Annita Dahl; as medical surrogate decision maker.? Patient?s PCP is Dr. Kearns.? Patient does not participate with dialysis.? Patient?s director product development is Dr. Rogel.? Plan is for the patient to return home at the time of discharge.? Family will provide transportation on behalf of the patient. ?No further discharge needs identified by the patient.? No further intervention required at this time, social worker assistant will be available to address any further concerns.? Next of Kin: Annita Dahl D/C Plan: Home
[2024-12-07] MEDS: ATORVASTATIN CALCIUM 20 MG TABLET 80 MG PO (20:30)
[2024-12-07] MEDS: TICAGRELOR 90 MG TABLET PO (20:30)
[2024-12-08] VITALS (57 sets, daily range): BP systolic 121–140; BP diastolic 63–75; PULSE 55–95; RESP 0–42; TEMP 35.9–37.1; O2SAT 97–99; BMI 26.6
[2024-12-08 05:16] LABS: Basophils % (Auto) 0 % (0-2.5); Eosinophils # (Auto) 0.1 Thou/mm3 (0.0-0.5); Eosinophils % (Auto) 1 % (0-10); Hemoglobin 12.4 g/dL (13.5-16.0); Immature Granulocytes % (Auto) 0 % (0-0); Immature Granulocytes Auto 0.02 Thou/mm3 (0.00-0.00); Lymphocytes # (Auto) 2.1 Thou/mm3 (1.0-4.8); Lymphocytes % (Auto) 32 % (10-50); Mean Corpuscular HGB Conc 33.5 g/dl (31.0-37.0); Mean Corpuscular Hemoglobin 30.6 pg (25.0-35.0); Mean Corpuscular Volume 91 fL (80-100); Monocytes # (Auto) 0.5 Thou/mm3 (0.0-0.8); Monocytes % (Auto) 8 % (0-12); Neutrophils # (Auto) 3.8 Thou/mm3 (1.8-7.7); Neutrophils % (Auto) 59 % (37-80); Nucleated Red Blood Cell % 0 /100 WBC (0); Platelet Count 172 Thou/mm3 (140-440); RDW Standard Deviation 47.9 fL (35.1-43.9); Red Blood Count 4.05 Miln/mm3 (4.50-5.90); White Blood Count 6.4 Thou/mm3 (3.8-10.6)
[2024-12-08 05:38] LABS: Alanine Aminotransferase 33 U/L (10-49); Albumin, Serum 3.5 gm/dL (3.4-4.8); Albumin/Globulin Ratio 2.1 (1.2-2.2); Alkaline Phosphatase 67 U/L (46-116); Anion Gap 6 (7-16); Aspartate Amino Transferase 111 U/L (0-34); BUN/Creatinine Ratio 19 Ratio (12-20); Bilirubin,Total 0.7 mg/dL (0.3-1.2); Blood Urea Nitrogen 17 mg/dL (9-23); Calcium 8.2 mg/dL (8.3-10.6); Calcium (Corrected) 8.6 mg/dL (8.5-10.1); Chloride 109 mMol/L (98-107); Creatinine (Component) 0.9 mg/dL (0.6-1.3); Estimated Creatinine Clearance 70.9 mL/min (>60); Globulin 1.7 gm/dL (2.3-3.5); Glucose 107 mg/dL (74-106); Osmolality,Calculated 288 (275-295); Potassium 4.7 mMol/L (3.4-5.1); Sodium 144 mMol/L (136-145); Total Protein 5.2 gm/dL (5.7-8.2); eGFR > 60 See Note
[2024-12-08] MEDS: ASPIRIN EC 81 MG TABEC PO (08:44)
[2024-12-08] MEDS: TICAGRELOR 90 MG TABLET PO (08:44)
[2024-12-08] MEDS: LOSARTAN POTASSIUM 25 MG TABLET 50 MG PO (08:45)
--- NOTE | 2024-12-08 10:34 | ESPR_ITS ---
<Statement entered by Ban Rogel MD - 12/08/24 17:35> I personally examined evaluated patient who has had acute myocardial infarction NSTEMI elevated troponin levels culprit lesion of circumflex artery mid circumflex artery complete occlusion underwent successful stent placement patient has moderate 80% stenosis RCA will require PCI stent placement within the next 4 to 6 weeks recommended to be discharged home if he is stable which appears to be stable no beta-shashank since heart rate is low but other guideline directed medical management aspirin and Brilinta to be prescribed as well. I will see him for follow-up in 1 week in my office Documentation for date of: 12/08/24 Subjective Subjective Interval history: 74-year-old gentleman with past medical history of hypertension on losartan came to the ED with chief complaint of chest pain. 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 He is having on and off chest pain but this morning he stated that he had a sharp pain 7 out of 10 in the morning, at that time he was diaphoretic and his even mentioned that he was looking pale. He took losartan at that time and came to the ED. In the ED he received aspirin and nitro that relieved his pain. EKG does not have any specific changes. Troponin in the ED was 5. Initial blood pressure BP?122/77, P?58, RR?18 labs WBC?7.6, hemoglobin?13.2, PT?11.9, INR?1.1 sodium?141, potassium?4.5 magnesium?2.1, AST?67, ALT?31, total creatinine kinase 1049. He denies any significant family history of heart problems. His primary care physician is Dr. Aquino , patient has never seen a solar site assessment specialist. 12/07/2024: coronary angiography showed double-vessel coronary artery disease, evidence of total occlusion of the mid left circumflex artery and 80% stenosis in the mid right coronary artery. He underwent successful PCI, PTCA, stent placement, primary angioplasty of the mid left circumflex artery with excellent results. Pre-procedure stenosis 100%, post procedure stenosis 0%. Pre-procedure KENDAL flow was 0. Post procedure KENDAL flow 3. The patient will continue on aspirin and Brilinta. If he has persistent angina pectoris, we will do PCI stent placement in the right coronary artery. If he is stable, he can have elective PCI stent placement in the right coronary artery after 6 weeks. 12/08/2024: Patient was seen and examined at bedside. No acute overnight events. He denies any chest pain or pressure. He reports his breathing has improved significantly after procedure. He is on aspirin, atorvastatin, ticagrelor and losartan. Will hold off on beta-blockers due to borderline heart rate mostly in 50s. Blood pressure is controlled, last reading 134/75. Primary team is set patient for discharge today, continue current medication regimen and follow-up with Dr. Rogel within 2 weeks. Exam Vital Signs Temp Pulse Resp BP Pulse Ox O2 Del Method 97.5 F 68 20 134/75 H 97 Room Air 12/08/24 08:00 12/08/24 08:45 12/08/24 08:00 12/08/24 08:45 12/08/24 08:00 12/08/24 08:00 Narrative Exam Gen: Well-developed and well-nourished elderly male. HEENT: NCAT, PERRLA, EOMI, MMM, anicteric conjunctivae. CVS: normal S1 and S2. RRR. No M/R/G. Resp: CTA B/L. No rhonchi, rales, crackles or wheezing. Abd: soft, non-tender, non-distended. BS+ in all 4 quadrants. MSK: Good ROM in BUE & BLE. No edema or rash. Neuro: CN II-XII grossly intact. Strength 5/5 in BUE & BLE. Alert and oriented x3. Psych: appropriate mood and affect. Objective Labs 12/08/24 04:47 12/08/24 04:47 Labs: Laboratory Results - last 24 hr 12/08/24 04:47 WBC 6.4 RBC 4.05 L Hgb 12.4 L Hct 37.0 L MCV 91 MCH 30.6 MCHC 33.5 RDW Std Deviation 47.9 H Plt Count 172 Neut % (Auto) 59 Lymph % (Auto) 32 [place] % (Auto) 8 Eos % (Auto) 1 Baso % (Auto) 0 Neut # (Auto) 3.8 Lymph # (Auto) 2.1 [place] # (Auto) 0.5 Eos # (Auto) 0.1 Baso # (Auto) 0.0 Immature Gran # (Auto) 0.02 H Absolute Nucleated RBC 0.00 Immature Gran % 0 Nucleated RBC % 0 Sodium 144 Potassium 4.7 D Chloride 109 H Carbon Dioxide 29.0 Anion Gap 6 L BUN 17 Creatinine 0.9 Estim Creat Clear Calc 70.9 eGFR > 60 BUN/Creatinine Ratio 19 Glucose 107 H Calculated Osmolality 288 Calcium 8.2 L Corrected Calcium 8.6 Total Bilirubin 0.7 AST 111 H ALT 33 Alkaline Phosphatase 67 Total Protein 5.2 L Albumin 3.5 Globulin 1.7 L Albumin/Globulin Ratio 2.1 Quality Measures Quality Measures VTE prophylaxis Advance care planning discussed with:: patient Assessment & Plan Assessment Current Active Medications: Generic Name Dose Route Start Last Admin Trade Name Freq PRN Reason Stop Dose Admin Acetaminophen 650 mg 12/06/24 16:33 Acetaminophen 325 Mg Tablet PO 01/05/25 16:32 Q6H PRN Pain 1-3 and/or Fever >100.1 Aspirin 81 mg 12/07/24 09:00 12/08/24 08:44 Aspirin Ec 81 Mg Tabec PO 01/06/25 08:59 81 mg QDAY ROJELIO Administration Atorvastatin Calcium 80 mg 12/06/24 21:00 12/07/24 20:30 Atorvastatin Calcium 20 Mg Tablet PO 01/05/25 20:59 80 mg HS ROJELIO Administration Losartan Potassium 50 mg 12/08/24 09:00 12/08/24 08:45 Losartan Potassium 25 Mg Tablet PO 01/07/25 08:59 50 mg QDAY ROJELIO Administration Ondansetron HCl 4 mg 12/06/24 16:33 Ondansetron Inj 2 Mg/Ml Inj 2 Ml IVP 01/05/25 16:32 Q6H PRN NAUSEA OR VOMITING Protocol Sennosides 1 tab 12/06/24 16:33 Senna Tablet PO 01/05/25 16:32 QDAY PRN constipation Protocol Ticagrelor 90 mg 12/07/24 09:00 12/08/24 08:44 Ticagrelor 90 Mg Tablet PO 01/06/25 08:59 90 mg BID ROJELIO Administration Plan 74-year-old gentleman with past medical history of hypertension on losartan came to the ED with chief complaint of chest pain. 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 He is having on and off chest pain but this morning he stated that he had a sharp pain 7 out of 10 in the morning, at that time he was diaphoretic and his even mentioned that he was looking pale. He took losartan at that time and came to the ED. In the ED he received aspirin and nitro that relieved his pain. EKG does not have any specific changes. Troponin in the ED was 5. Initial blood pressure BP?122/77, P?58, RR?18 labs WBC?7.6, hemoglobin?13.2, PT?11.9, INR?1.1 sodium?141, potassium?4.5 magnesium?2.1, AST?67, ALT?31, total creatinine kinase 1049. He denies any significant family history of heart problems. His primary care physician is Dr. Aquino , patient has never seen a solar site assessment specialist. #NSTEMI s/p PCI. #CAD. - Most likely Type I versus less likely type II in the setting of recent stress. - He has sharp stabbing kind of chest pain which resolved after nitro and aspirin. - troponin was 5.1 on admission went to 9.63. - Patient got aspirin 325 in the ED and Nitropaste which relived his pain. - chest xray- no active disease. - coronary angiography showed double-vessel coronary artery disease, evidence of total occlusion of the mid left circumflex artery and 80% stenosis in the mid right coronary artery. He underwent successful PCI, PTCA, stent placement, primary angioplasty of the mid left circumflex artery with excellent results. Pre-procedure stenosis 100%, post procedure stenosis 0%. Pre-procedure KENDAL flow was 0. Post procedure KENDAL flow 3. The patient will continue on aspirin and Brilinta. If he has persistent angina pectoris, we will do PCI stent placement in the right coronary artery. If he is stable, he can have elective PCI stent placement in the right coronary artery after 6 weeks. Plan: - continue on aspirin 81 mg , atorvastatin 80 mg, losartan 100 q day, brillanta 90 bid. Elective PCI stent placement in the right coronary artery after 6 weeks. Follow up with Dr. Rogel within 2 weeks. - hold on beta shashank due to borderline bradycardia. - heparin drip discontinued. Rest of medical management as per primary team. Case discussed with Dr Rogel. Low Lozoya MD, PGY 2. Disclaimer: This note was dictated by speech recognition. Minor errors in applique sewer may be present due to voice recognition software.
--- NOTE | 2024-12-08 13:36 | ESPR_ITS ---
<Statement entered by Johnathan Barajas MD - 12/08/24 18:12> Patient examined and case discussed with the team including attending physician. Note reviewed, I agree with the care plan as documented. Mr Dahl is a 74-year-old male admitted for NSTEMI, likely type I , troponin >5. Past medical history includes primary hypertension. Cardiology Dr Rogel is consulted, look forward to recommendations. DEMETRIA Score 4?%, EKG shows sinus bradycardia without any concerning ST changes and chest x-ray shows normal heart size and no active disease. Lipid panel, A1c within normal limits. Troponin of 5.1 --> 9.7 --> 15 -> 31 --> cardiac cath on 12/07 ; Findings: Double-vessel coronary artery disease, evidence of total occlusion of the mid left circumflex artery and 80% stenosis in the mid right coronary artery. s/p Successful PCI, PTCA, stent placement at mid left circumflex artery. Post procedure KENDAL flow 3. Reduced home losartan 100-> 75 mg for BP 100-110 systolic. Plan: Per cardiology recommendations, continue on aspirin and Brilinta. ECHO read by Dr Rogel, patient stable for DC. Given patient is stable, patient can have an elective PCI stent placement later. Please refer to the note below for further details. - Johnathan Barajas MD, PGY 2 Disclaimer: The document may contain phonetic/typographic errors due to voice recognition software. These errors are purely due to imperfections in the software program and should not be misconstrued in any way to compromise the substance of the patient's medical care during this visit. Documentation for date of: 12/08/24 Subjective Subjective Interval history: 12/08/2024: No acute overnight events reported. Patient seen and examined in hospital bed reporting improvement in presenting symptoms. Patient's status post PCI with cardiology for stent placement in the circumflex artery. Patient denies having any concerning cardiac symptoms at this time. Will continue to monitor as the patient is still pending an echocardiogram which will be required prior to discharge. Expect discharge after echocardiogram is taken. Exam Vital Signs Temp Pulse Resp BP Pulse Ox O2 Del Method 97.9 F 58 L 20 136/71 H 98 Room Air 12/08/24 11:56 12/08/24 12:00 12/08/24 11:56 12/08/24 11:56 12/08/24 11:56 12/08/24 11:56 Narrative Exam Physical Exam: GENERAL: Awake, answering questions appropriately, appears stated age HEENT: NC/AT. Moist mucosa. PERRLA/EOMI. CARDIO: Heart RRR, no obvious murmurs, no JVD. PULM: No coughing or visible SOB. Lungs CTA B/L. GI: Abdomen soft, NT/ND, +BS. SKIN/MSK/EXT: No wounds/discoloration/rashes/edema/amputations. +Pedal pulses present B/L. NEURO: Oriented x3, Moves extremities x4, no focal neurologic deficits noted Objective Labs 12/08/24 04:47 12/08/24 04:47 Labs: Laboratory Results - last 24 hr 12/08/24 04:47 WBC 6.4 RBC 4.05 L Hgb 12.4 L Hct 37.0 L MCV 91 MCH 30.6 MCHC 33.5 RDW Std Deviation 47.9 H Plt Count 172 Neut % (Auto) 59 Lymph % (Auto) 32 [place] % (Auto) 8 Eos % (Auto) 1 Baso % (Auto) 0 Neut # (Auto) 3.8 Lymph # (Auto) 2.1 [place] # (Auto) 0.5 Eos # (Auto) 0.1 Baso # (Auto) 0.0 Immature Gran # (Auto) 0.02 H Absolute Nucleated RBC 0.00 Immature Gran % 0 Nucleated RBC % 0 Sodium 144 Potassium 4.7 D Chloride 109 H Carbon Dioxide 29.0 Anion Gap 6 L BUN 17 Creatinine 0.9 Estim Creat Clear Calc 70.9 eGFR > 60 BUN/Creatinine Ratio 19 Glucose 107 H Calculated Osmolality 288 Calcium 8.2 L Corrected Calcium 8.6 Total Bilirubin 0.7 AST 111 H ALT 33 Alkaline Phosphatase 67 Total Protein 5.2 L Albumin 3.5 Globulin 1.7 L Albumin/Globulin Ratio 2.1 Quality Measures Quality Measures VTE prophylaxis Advance care planning discussed with:: patient Assessment & Plan Assessment Current Active Medications: Generic Name Dose Route Start Last Admin Trade Name Freq PRN Reason Stop Dose Admin Acetaminophen 650 mg 12/06/24 16:33 Acetaminophen 325 Mg Tablet PO 01/05/25 16:32 Q6H PRN Pain 1-3 and/or Fever >100.1 Aspirin 81 mg 12/07/24 09:00 12/08/24 08:44 Aspirin Ec 81 Mg Tabec PO 01/06/25 08:59 81 mg QDAY ROJELIO Administration Atorvastatin Calcium 80 mg 12/06/24 21:00 12/07/24 20:30 Atorvastatin Calcium 20 Mg Tablet PO 01/05/25 20:59 80 mg HS ROJELIO Administration Losartan Potassium 50 mg 12/08/24 09:00 12/08/24 08:45 Losartan Potassium 25 Mg Tablet PO 01/07/25 08:59 50 mg QDAY ROJELIO Administration Ondansetron HCl 4 mg 12/06/24 16:33 Ondansetron Inj 2 Mg/Ml Inj 2 Ml IVP 01/05/25 16:32 Q6H PRN NAUSEA OR VOMITING Protocol Sennosides 1 tab 12/06/24 16:33 Senna Tablet PO 01/05/25 16:32 QDAY PRN constipation Protocol Ticagrelor 90 mg 12/07/24 09:00 12/08/24 08:44 Ticagrelor 90 Mg Tablet PO 01/06/25 08:59 90 mg BID ROJELIO Administration Plan 74-year-old male with past medical history of hypertension on losartan presenting to the ED on 12/06 with episode of chest pain associated with fatigue and dyspnea on exertion will be admitted for NSTEMI type I versus type II and started on heparin drip along with cardiology consultation. 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 104?points DEMETRIA Score 4?% Probability of from admission to 6 months EKG shows sinus bradycardia without any concerning ST changes and chest x-ray shows normal heart size and no active disease. In the ED, patient's initial troponin of 5.104 --> 9.6 --> 15.8 --> 31.8 Total creatinine kinase of 1049 but BNP of 96 Patient given aspirin loading dose, heparin drip and nitroglycerin topical in the ED Cardiology consulted, appreciate recommendations Completed Double-vessel coronary artery disease, evidence of total occlusion of the mid left circumflex artery and 80% stenosis in the mid right coronary artery. Operative Report: successful PCI, PTCA, stent placement, primary angioplasty of the mid left circumflex artery with excellent results. Pre-procedure stenosis 100%, post procedure stenosis 0%. Plan: Echo ordered Discharge and follow-up in 4 weeks for elective PCI Aspirin, atorvastatin initiated Brillinta 90 mg p.o. twice daily We will hold off on beta-shashank as patient is bradycardic Keep potassium greater than 4 and magnesium greater than 2 #Hypertension Patient on home losartan 50 mg, states that he took his morning dose Currently hypertensive with systolic in the 170s Plan: Resume patient's home dose #MASLD During workup, patient has elevated AST of 67, ALT of 31 States that he does drink alcohol occasionally but denies daily alcohol use Liver U/S shows Normal gallbladder. Fatty liver, suspect primary hepatocellular disease Plan: Diet and exercise counseling Follow-up with PCP for close monitoring #Normocytic anemia Presenting with hemoglobin of 13.2 and MCV of 89 Differentials include: Iron deficiency anemia, anemia chronic disease, vitamin deficiency, less likely to be hemolytic anemia or myelosuppression Reticulocyte count within normal limits Iron panel shows iron of 73, TIBC 255, iron saturation 28%, ferritin 107 Plan: Follow-up with morning labs Follow-up with PCP outpatient Hospital Management: Lines: PIV Diet: Cardiac Bowel: Senna as needed GI prophylaxis: Not needed DVT prophylaxis: On DAPT Dispo: Status post PCI for circumflex occlusion with stent placement, monitoring for angina symptoms, echo pending Code: Full Patient seen and examined with attending Dr. Sparks and senior resident Dr. Jenn Corado, PGY-1 Attending Provider Attestation/Addendum I attest that I was physically present for the evaluation, physical examination, lab and imaging review of the patient with the residents. I discussed the case with the residents and agree with the findings and plans of care as documented above. At bedside today, patient states he is feeling well and does not have any complaints. His chest pain has resolved. Denies any shortness of breath, cough, dizziness, lightheadedness. Underwent PCI with cardiology yesterday, was found to have 100% occlusion of mid left circumflex artery and 80% stenosis of mid right coronary artery. Stent was placed on the left circumflex artery. Currently on aspirin and Brilinta along with statin. We will discuss with cardiology regarding pending echocardiography. Will plan for discharge once cardiology clears. Eliot Sparks MD
--- NOTE | 2024-12-08 14:26 | PC.SS ---
Rounding note: pending echo. Patient to return home at d/c.
--- NOTE | 2024-12-08 17:11 | ESDS_ITS ---
<Statement entered by Johnathan Barajas MD - 12/08/24 17:14> Patient was examined with the team including attending physician. Note reviewed, I agree with the discharge plan as documented. - Johnathan Barajas MD PGY2 Disclaimer: The document may contain phonetic/typographic errors due to voice recognition software. Planned Discharge Date 12/08/24 DS: Providers Provider Date of admission: 12/06/24 16:33 Primary care physician: Chela Kearns MD Admitting Provider: Nhung Dukes DO Attending Provider on Admission: Eliot Ahumada MD Consults: 12/06/24 16:15 Consult to Cardiology Stat Comment: Consulting Provider: Ban Rogel 12/06/24 18:50 [facility] Referral - Knowledge Deficit Routine Comment: Positive screening for knowledge deficit needs. [facility] Referral - Nutrition Routine Comment: Positive screening for nutrition needs. Attending Provider on DC: Eliot Ahumada MD Discharging Provider: Johnathan Barajas MD DS: Diagnosis Discharge Diagnosis (1) NSTEMI (non-ST elevation myocardial infarction): Status: Acute (2) Elevated troponin: Status: Acute Problem List Completed Was Problem List Reviewed/Reconciled?: Yes Hospital Course Hospital Course Hospital course: 74-year-old male with past medical history of hypertension on losartan presenting to the ED on 12/06 with episode of chest pain associated with fatigue and dyspnea on exertion. In the ED, patient presented initially normotensive but then hypertensive with blood pressure 170/79, heart rate mildly bradycardic 58, respiratory rate 18, afebrile satting 98 on room air. Pertinent lab findings included WBC 7.6, hemoglobin 13.2 with MCV of 89, BUN 17, creatinine 0.9, magnesium 2.1, AST 67, ALT 31, total creatinine kinase 1049, troponin 5.104, BNP 96. EKG shows sinus bradycardia without any concerning ST changes and chest x- ray shows normal heart size and no active disease. Patient was admitted for NSTEMI type and started on heparin drip along with cardiology consultation. On 12/07 patient completed PCI and found to have double vessel coronary artery disease with total occlusion of the mid left circumflex artery and 80% stenosis in the mid right coronary artery. Patient had a successful PCI with stent placement in the left circumflex artery with excellent results. Patient was started on dual antiplatelets, statin medication; however, beta-shashank was not initiated as the patient was bradycardic. Patient's was asymptomatic after the procedure and will be discharged with the following strict instructions. Please take aspirin 81 mg by mouth daily along with ticagrelor 90 mg tablet by mouth twice a day for stent patency and coronary artery disease Please take atorvastatin 40 mg by mouth daily Please take losartan 50 mg by mouth daily for high blood pressure Please follow-up with your PCP within the next 1 to 2 weeks, you have MASLD; let your PCP know Please follow-up with boomboat operator, Dr. Rogel, within 2 week after discharge If your symptoms worsen or if you develop new chest pain, shortness of breath, dizziness or loss of consciousness - please come back to the ED immediately. Hospital Diagnosis: #Acute coronary syndrome #NSTEMI type I #Hypertension #MASLD #Anemia of Chronic Disease Modesto Corado DO PGY-1 Time Spent with Patient Time attestation: Total time spent providing and/or coordinating discharge services: 45 minutes Time spent: Greater than 30 minutes Exam Vital Signs Temp Pulse Resp BP Pulse Ox O2 Del Method 98.2 F 75 18 135/75 H 99 Room Air 12/08/24 16:00 12/08/24 16:00 12/08/24 16:00 12/08/24 16:00 12/08/24 16:00 12/08/24 16:00 Narrative Exam Physical Exam: GENERAL: Awake, answering questions appropriately, appears stated age HEENT: NC/AT. Moist mucosa. PERRLA/EOMI. CARDIO: Heart RRR, no obvious murmurs, no JVD. PULM: No coughing or visible SOB. Lungs CTA B/L. GI: Abdomen soft, NT/ND, +BS. SKIN/MSK/EXT: No wounds/discoloration/rashes/edema/amputations. +Pedal pulses present B/L. NEURO: Oriented x3, Moves extremities x4, no focal neurologic deficits noted Discharge Plan Plan Patient Disposition: HOME (Self Care) Patient condition on transfer: Stable Care Plan Goals: Please take aspirin 81 mg by mouth daily along with ticagrelor 90 mg tablet by mouth twice a day for stent patency and coronary artery disease Please take atorvastatin 40 mg by mouth daily Please take losartan 50 mg by mouth daily for high blood pressure Please follow-up with your PCP within the next 1 to 2 weeks, you have MASLD; let your PCP know Please follow-up with boomboat operator, Dr. Rogel, within 2 week after discharge If your symptoms worsen or if you develop new chest pain, shortness of breath, dizziness or loss of consciousness - please come back to the ED immediately. Prescriptions/Referrals Prescriptions/Med Rec: New aspirin [Ecotrin Low Strength] 81 mg Tablet,Delayed Release (Dr/Ec) 81 mg PO QDAY 30 Days Qty: 30 0RF ticagrelor [Brilinta] 90 mg tablet 90 mg PO BID 30 Days Qty: 60 0RF atorvastatin 40 mg tablet 40 mg PO QDAY 30 Days Qty: 30 0RF losartan 50 mg tablet 50 mg PO QDAY 30 Days Qty: 30 0RF Referrals: Chela Kearns MD [Primary Care Provider] - Ban Rogel MD [Physician] - Patient/Caregiver Discharge Instructions Meds to Beds: Yes Discharge Activity: resume usual activities Education Materials: Heart Attack Dc, Heart Attack Meds, Heart Attack: Back at Home Print Language: Welsh Stand Alone Forms: Maria Luz Award Info., Patient Portal Info Letter Discharge Order Discharge Orders: Discharge (Routine); Ordered 12/08/24 Ordered By: Johnathan Barajas Quality Discharge Quality Measures VTE prophylaxis Attestestation MD Attestation I attest that I was physically present for the evaluation, physical examination, lab and imaging review of the patient with the residents. I discussed the case with the residents and agree with the findings and plans of care as documented above. Eliot Sparks MD
== END 2024-12-08 18:33 | disposition home or self-care (01) | DRG 322 ==
LOC: SERX 17:01 → SERHOLD 17:28 → S2NX 18:29
PROVIDERS: Internal Medicine Cardiovascular Disease; Nurse Practitioner Family; Admitting Provider Internal Medicine; Emergency Provider Emergency Medicine; PCP Internal Medicine
DX: I21.4 Non-ST elevation (NSTEMI) myocardial infarction (principal); I10 Essential (primary) hypertension; D63.8 Anemia in other chronic diseases classified elsewhere; I25.10 Atherosclerotic heart disease of native coronary artery without angina pectoris; E78.00 Pure hypercholesterolemia, unspecified; K76.0 Fatty (change of) liver, not elsewhere classified; I25.82 Chronic total occlusion of coronary artery; Z79.02 Long term (current) use of antithrombotics/antiplatelets; Z79.899 Other long term (current) drug therapy
CPT/HCPCS: 36415; 71046; 76705; 80053; 80061; 81001; 82550; 82728; 83036; 83540; 83550; 83735; 83880; 84100; 84484; 85025; 85046; 85347; 85610; 85730; 93005; 93306; 96360; 99152; 99153; 99285; A4649; C1725; C1769; C1874; C1887; C1894; J0171; J0461; J1200; J1643; J1644; J1720; J2250; J2310; J2371; J2919; J3010; J3490; J7030; A9270; J2305